=== PATIENT | male | born 1945 | race Caucasian/White ===

== ENCOUNTER 2019-12-24 18:52 | Emergency (ER) | payer MEDICARE, OTHER, SELFPAY ==
[2019-12-24 20:01] VITALS: BP 149/83; PULSE 62; RESP 14; TEMP 36.6; O2SAT 97; BMI 27.1
== END 2019-12-24 20:12 ==
LOC: ER 19:06
PROVIDERS: Emergency Provider Physician Assistant; PCP Family Medicine
DX: Z53.21 Procedure and treatment not carried out due to patient leaving prior to being seen by health care provider (principal)
CPT/HCPCS: 99281

== ENCOUNTER → 2020-04-22 10:11 | Outpatient (BNVA) | payer MEDICARE, OTHER, SELFPAY | PROVIDERS: PCP Family Medicine; Visit Provider Urology | DX: N52.9 Male erectile dysfunction, unspecified (principal); N32.0 Bladder-neck obstruction; R82.81 Pyuria; R97.20 Elevated prostate specific antigen [PSA] | CPT/HCPCS: 81003; 84153 ==

== ENCOUNTER → 2020-04-28 14:07 | Outpatient (BNVA) | payer MEDICARE, OTHER, SELFPAY | PROVIDERS: PCP Family Medicine; Visit Provider Dermatology | DX: D48.9 Neoplasm of uncertain behavior, unspecified (principal) | CPT/HCPCS: 88304 ==

== ENCOUNTER → 2021-04-22 10:54 | Outpatient (BNVA) | payer MEDICARE, OTHER, SELFPAY | PROVIDERS: PCP Family Medicine; Visit Provider Urology | DX: R97.20 Elevated prostate specific antigen [PSA] (principal); N30.00 Acute cystitis without hematuria; R82.71 Bacteriuria; N32.0 Bladder-neck obstruction; N52.9 Male erectile dysfunction, unspecified | CPT/HCPCS: 81003; 84153; 87077; 87086; 87184 ==

== ENCOUNTER → 2021-05-13 10:04 | Outpatient (BNVA) | payer MEDICARE, OTHER, SELFPAY | PROVIDERS: PCP Family Medicine; Visit Provider Nurse Practitioner Family | DX: R82.71 Bacteriuria (principal) | CPT/HCPCS: 81003 ==

== ENCOUNTER 2022-04-20 15:11 | Outpatient (CLI) | payer MEDICARE, OTHER, SELFPAY ==
[2022-04-20 16:19] LABS: Prostate Specific AG Urology 5.83 ng/mL (0-4)
== END 2022-04-20 15:12 | disposition home or self-care (01) ==
LOC: LAB 15:15
PROVIDERS: PCP Family Medicine; Visit Provider Urology
DX: R97.20 Elevated prostate specific antigen [PSA] (principal)
CPT/HCPCS: 84153

== ENCOUNTER → 2022-04-21 10:16 | Outpatient (BNVA) | payer MEDICARE, OTHER, SELFPAY | PROVIDERS: PCP Family Medicine; Visit Provider Urology | DX: N30.00 Acute cystitis without hematuria (principal); R97.20 Elevated prostate specific antigen [PSA]; N32.0 Bladder-neck obstruction; N52.9 Male erectile dysfunction, unspecified | CPT/HCPCS: 51798; 81003; 99213 ==

== ENCOUNTER → 2023-02-09 12:35 | Outpatient (BNVA) | payer MEDICARE, OTHER, SELFPAY | PROVIDERS: PCP Family Medicine; Referring Provider Dermatology; Visit Provider Student in an Organized Health Care Education/Training Program | DX: M70.61 Trochanteric bursitis, right hip | CPT/HCPCS: 73502; 99203 ==

== ENCOUNTER → 2023-05-08 09:50 | Outpatient (BNVA) | payer MEDICARE, OTHER, SELFPAY | PROVIDERS: PCP Family Medicine; Visit Provider Podiatrist Foot & Ankle Surgery | DX: M72.2 Plantar fascial fibromatosis | CPT/HCPCS: 73630; 99203 ==

== ENCOUNTER → 2023-05-29 10:42 | Outpatient (BNVA) | payer MEDICARE, OTHER, SELFPAY | PROVIDERS: PCP Family Medicine; Visit Provider Podiatrist Foot & Ankle Surgery | DX: M72.2 Plantar fascial fibromatosis | CPT/HCPCS: 99213 ==

== ENCOUNTER 2025-03-17 08:33 | Observation (INO) | payer MEDICARE, OTHER, SELFPAY ==
[2025-03-17] VITALS (9 sets, daily range): BP systolic 120–155; BP diastolic 71–85; PULSE 60–67; RESP 16–20; TEMP 36.4–36.6; O2SAT 93–100; BMI 27.8
--- OUTSIDE RECORDS SUMMARY | 2025-03-17 08:50 | XMS_ITS | Patient Health Record ---
Author Organization [employer] Urolog y, [facility] Address [address] [place] [address] Care Team Providers Care Dictating Machine Typist Name Role Phone Amie Rebolledo Primary Care Provider Autumn wynn MITUL WALLACE Unavailable [phone] Allergies No Known Allergies Results Component Value Reference Range Notes Urinalysis, Routine Reviewed date:08/12/2024 03:11:18 PM Interpretation: Performing Lab: Notes/Report: Urine-Color yellow Appearance clear Glucose - Bilirubin - Ketones - Specific [place] 1.025 Occult Blood - pH 6.0 Urine Protein - Urobilinogen,Semi-Qn - Nitrite, Urine - WBC Esterase - Reason For Referral No Information Medications Medication SIG (Take, Route, Frequency, Duration) Notes Start Date End Date Status Sulfamethoxazole - as directed Active Mylshxexzlova-Crdezz-Wxzfnjh e 0.1 & 5 % (Lotion) as directed Externally Active Sildenafil Citrate A ctive Social History Tobacco Use: Social History Observation Description Date Details (start date - stop date) Never Smoker NA - NA Tobacco Control (Standard) Question Answer Notes Tobacco use: Nonsmoker Problems Problem Type SNOMED Code ICD Code Onset Dates Problem Status W/U Status Risk Notes Problem Benign prostatic hyperplasia (451788886) BPH (benign prostatic hyperplasia) (N40.0) Active confirmed Problem Retention of urine (275637517) History of urinary retention (Z87.898) Active confirmed Problem History of transurethral resection of prostate (290152608) S/P TURP (Z90.79) Active confirmed Problem History of urethral stricture (378940233) H/O urethral stricture (Z87.448) Active confirmed Vital Signs Height-cm 182.88 cm 08/12/2024 Weight-kg 95.26 kg 08/12/2024 Height 72 in 08/12/2024 Weight 210 lbs 08/12/2024 BMI 28.48 kg/m2 08/12/2024 Procedures Procedure Date Ordered Date Performed Result Body Sit e Bladder Scan 08/12/2024 08/12/2024 PVR 281ml Encounters Encounter Location Date Provider Diagnosis [facility], [facility] [address] [place] [address] 08/12/2024 MITUL WALLACE BPH (benign prostatic hyperplasia) N40.0 ; S/P TURP Z90.79 ; H/O urethral stricture Z87.448 and History of urinary retention Z87.898 Assessments Encounter Date Diagnosis (ICD Code) Assessment Notes Treatment Notes Treatment Clinical Notes Section Notes 08/12/2024 BPH (benign prostatic hyperplasia) (ICD-10 - N40.0) 78 y/o M with BPH, Performs CIC once a month for urethral stricture dilation. He s/p TURP in 2011. PVR 281cc. Continue PSA with PCP. Stable from an urological at this time. He will return in 1yr with UA, PVR and IPSS. Return sooner with any concerns. Plan: - Continue CIC monthly for self dilation of urethral stricture -RTC in 1yr with UA, PVR, IPSS I, Jailene Escobar, am scribing for, and in the presence of, Dr. Wallace. I, Dr. Mitul Wallace, personally performed the services prescribed in this documentation, as scribed by Melisa Mcdonald, in my presence, and it is both accurate and complete. 08/12/2024 S/P TURP (ICD-10 - Z90.79) 78 y/o M with BPH, Performs CIC once a month for urethral stricture dilation. He s/p TURP in 2011. PVR 281cc. Continue PSA with PCP. Stable from an urological at this time. He will return in 1yr with UA, PVR and IPSS. Return sooner with any concerns. Plan: - Continue CIC monthly for self dilation of urethral stricture -RTC in 1yr with UA, PVR, IPSS I, Star Escobare, am scribing for, and in the presence of, Dr. Wallace. I, Dr. Mitul Wallace, personally performed the services prescribed in this documentation, as scribed by Melisa Mcdonald, in my presence, and it is both accurate and complete. 08/12/2024 H/O urethral stricture (ICD-10 - Z87.448) 78 y/o M with BPH, Performs CIC once a month for urethral stricture dilation. He s/p TURP in 2011. PVR 281cc. Continue PSA with PCP. Stable from an urological at this time. He will return in 1yr with UA, PVR and IPSS. Return sooner with any concerns. Plan: - Continue CIC monthly for self dilation of urethral stricture -RTC in 1yr with UA, PVR, IPSS Melisa Pacheco Scribe am scribing for, and in the presence of, Dr. Wallace. I, Dr. Mitul Wallace, personally performed the services prescribed in this documentation, as scribed by Melisa Mcdonald, in my presence, and it is both accurate and complete. 08/12/2024 History of urinary retention (ICD-10 - Z87.898) 78 y/o M with BPH, Performs CIC once a month for urethral stricture dilation. He s/p TURP in 2011. PVR 281cc. Continue PSA with PCP. Stable from an urological at this time. He will return in 1yr with UA, PVR and IPSS. Return sooner with any concerns. Plan: - Continue CIC monthly for self dilation of urethral stricture -RTC in 1yr with UA, PVR, IPSS Melisa Pacheco Scribe, am scribing for, and in the presence of, Dr. Wallace. I, Dr. Mitul Wallace, personally performed the services prescribed in this documentation, as scribed by Melisa Mcdonald, in my presence, and it is both accurate and complete. Plan Of Treatment Next Appt Details Provider Name:MITUL Martins, 08/18/2025 01:15:00 PM, [address] [place], [address], Insurance Providers Payer Name Payer Address Payer Phone Subscriber Number Group Number Insured Name Patient Relationship to Insured Coverage Start Date Coverage End Date [place] [address] [place] [id number] Placido Miller Self - patient is the insured [employer] [facility] [address] [place] [address] [phone] [id number] Placido Miller Self - patient is the insured Medical (General) History Medical History History ICD Code Difficulty urinating Elevated PSA Erectile dysfunction Recurrent UTI Surgical History Surgery Date(Month/Year) Prostate surgery 2013 Double hernia repair 2016 Hospitalization History Reason Date(Month/Year) GI bleed 2014
[2025-03-17 09:04] LABS: Hematocrit 40.2 % (37-53); Hemoglobin 13.80 g/dL (11.27-16.99); Mean Corpuscular HGB Conc 34.3 g/dL (30-55); Mean Corpuscular Hemoglobin 29.9 pg (27-33); Mean Corpuscular Volume 87.2 fl (82-101); Nucleated Red Blood Cells % 0 %; Platelet Count 227 10^3/cmm (157-399); Red Blood Count 4.61 10^6/uL (3.85-5.65); White Blood Count 6.28 10^3/uL (3.29-11.43)
[2025-03-17 09:14] LABS: INR 0.84 (0.8-1.2); Prothrombin Time 12.10 SECONDS (12.1-14.9)
[2025-03-17 09:15] LABS: Partial Thromboplastin Time 27.2 SECONDS (23.9-36.7)
[2025-03-17 09:23] LABS: Albumin Level 4.0 g/dL (3.5-5.2); Alkaline Phosphatase 67 U/L (40-130); Blood Urea Nitrogen 18 mg/dL (8-23); Calcium 8.6 mg/dL (8.5-10.5); Carbon Dioxide 24 mmol/L (22-29); Chloride 104 mmol/L (98-107); Creatinine Clr Calc Pharmacy 64.5078; Globulin 2.8 g/dL (1.3-4.6); Glucose 112 mg/dL (65-115); Lipase 74 U/L (13-60); Osmolality Calculated 287 mOsm/kg (285-295); Sodium 137 mmol/L (136-145); Total Protein 6.8 g/dL (6.6-8.7)
--- NOTE | 2025-03-17 09:26 | CT_ITS ---
WS: [id number] CT ABDOMEN PELVIS TECHNIQUE: Contrast-enhanced CT of the abdomen and pelvis with coronal and sagittal reformatted images. CLINICAL INFORMATION: abd pain COMPARISON: None. DLP: 585.[address] scans at [facility] use at least one of these dose optimization techniques: automated exposure control; mA and/or kV adjustment per patient size (includes targeted exams where dose is matched to clinical indication); or iterative reconstruction. FINDINGS: Diverticulosis. Loops of sigmoid colon in a large LEFT inguinal hernia although nonobstructed. Tiny amount of thickening and induration may be due to minimal or early diverticulitis. No fluid collections. Large nonobstructed RIGHT inguinal hernia containing loops of small bowel. Lung bases are well aerated. Slight bibasilar atelectasis. Fatty liver. Hepatic cysts. Normal portal vein and splenic vein. Normal gallbladder. Normal spleen. Adrenal glands are normal. Normal renal parenchymal enhancement. No hydronephrosis. Cortical scarring LEFT kidney. Small LEFT renal cyst. No hyd ronephrosis. Enlarged prostate measuring 4.9 cm. Celiac and SMA are patent. Normal caliber abdominal aorta. 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 This is similar to previous. CT/CT abdomen pelvis w con* [id number] IMPRESSION: 1. LEFT inguinal hernia containing loops of nonobstructed sigmoid colon. Widem outh hernia. There is very minimal trace induration in this area suspicious for diverticulitis. Recommend correlation for reducibility and intermittent obstru ction 2. Widemouth RIGHT inguinal hernia containing loops of nonobstructed small bow el. 3. Enlarged prostate measuring 4.9 cm with evidence of chronic bladder outlet obstruction. Recommend correlation PSA. 4. No other acute findings.
--- NOTE | 2025-03-17 09:29 | ED_ITS ---
HPI - GI Bleed 2 General: Chief complaint: GI Bleed Stated complaint: bloody stool Time Seen by Provider: 03/17/25 08:40 History of Present Illness: 79-year-old male presents to the emergen cy room with complaints of 2 large bright red bloody bowel movements in the last 12 hours. He had 1 yesterday and another this morning. He has had similar episodes in the past. Previously required transfer to [facility] when he had an active lower GI bleed of bright red blood they stabilized and gave him blood products and then eventually did a colonoscopy and discharged him home after approximately 2 to 3 days. The blood was thought to be coming from diverticuli. In discussing it does not sound like he was ever treated for diverticulitis necessarily. He denies any fever sweats chills no dysuria urgency or frequency no hematuria. Associated symptoms: Denies abdominal pain, chills, fever(s) or rash Related Data Home Medications ?Medication ?Instructions ?Recorded ?Confirmed No Known Home Medications 02/09/23 100 12/04 Allergies Allergy/AdvReac Type Severity Reaction Status Date / Time No Known Allergies Allergy Verified 05/29/23 10:52 Review of Systems 2 Const: Denies: fever(s) or chills Card: Denies: chest pain Resp: Denies: dyspnea GI: Denies: abdominal pain : Denies: dysuria, urinary frequency or urinary urgency Musc: Denies: neck pain or back pain Skin/Breast: Denies: rash PFSH ED 2 PFSH: Medical History PND (post-nasal drip) URI (upper respiratory infection) Erectile dysfunction BNO (bladder neck obstruction) History of recurrent UTIs Elevated PSA Surgical History Hx of colonoscopy with polypectomy Hx of transurethral resection of prostate Family History Mother , AT AGE 50 Cancer Father , AT AGE 83 Dementia HIP FRACTURE Social History Smoking and tobacco/nicotine status: former use of tobacco/nicotine Alcohol intake: current Alcohol intake frequency: holidays/special occasions only Substance/Drug Use: never Caregiver/support person: No Lives independently: No Household members: spouse Marital status: Current occupational status: employed Physical Exam 2 Const: GENERAL APPEARANCE: cooperative ORIENTATION/CONSCIOUSNESS: Yes awake, Yes oriented to person, Yes oriented to place and Yes oriented to time HENMT: COMMON NORMALS: normocephalic, atraumatic and hearing grossly normal bilaterally HEAD & SCALP: normocephalic and atraumatic Resp: COMMON NORMALS: normal respiratory effort, No retractions, No use of accessory muscles and clear to auscultation bilaterally AUSCULTATION: clear to auscultation bilaterally Cardio: COMMON NORMALS: regular rate, regular rhythm and No murmurs present (Cardio) RATE: regular rate RHYTHM: regular rhythm GI: COMMON NORMALS: Soft to palpation and No hepatosplenomegaly present A USCULTATION: Yes normoactive bowel sounds PALPATION: Yes Soft to palpation, No Tenderness to palpation present (GI), No Guarding due to palpation present (GI) and Yes No hepatosplenomegaly present Extremity: COMMON NORMALS: normal to inspection, capillary refill normal, no clubbing, cyanosis or edema, no calf tenderness and no pedal edema Neuro: SENSORIUM/ORIENTATION: Yes oriented to person, Yes oriented to place and Yes oriented to time Skin: COMMON NORMALS: no rashes or lesions noted GENERAL SKIN EXAM: no rashes or lesions noted Course 2 Vital Signs: Vital signs: Vital Signs Temperature 97.7 F 03/17/25 08:42 Pulse Rate 65 03/17/25 11:38 Respiratory Rate 16 03/17/25 08:42 Blood Pressure 134/80 03/17/25 11:38 Pulse Oximetry 97 03/17/25 11:38 Oxygen Delivery Me thod Room Air 03/17/25 08:42 MDM - GI Bleed Medical Decision Making While in department patient had another bloody bowel movement. His hemoglobin is 13 and his white count is normal CT shows left inguinal hernia without obstruction there is also question of some diverticulitis with mild induration. Discussed with Dr. Hines. He does not believe that hernia is at issue here based on the patient's presenting symptoms of 10 degree we did not try to manipulate it because of the inflammation there. He recommends observation and treatment with IV antibiotics cussed Dr. Eddy started Zosyn. Will need serial hemoglobins and monitoring Dr. Hines to consult. Orders written. Medical Records I reviewed the patient's medical records. Lab Data I reviewed the patient's lab results. 03/17/25 08:49 03/17/25 08:49 Radiology Impressions Abdomen/Pelvis CT 03/17/25 09:26 IMPRESSION: 1. LEFT inguinal hernia containing loops of nonobstructed sigmoid colon. Widemouth hernia. There is very minimal trace induration in this area suspicious for diverticulitis. Recommend correlation for reducibility and intermittent obstruction 2. Widemouth RIGHT inguinal hernia containing loops of nonobstructed small bowel. 3. Enlarged prostate measuring 4.9 cm with evidence of chronic bladder outlet obstruction. Recommend correlation PSA. 4. No other acute findings. Laboratory Results WBC 6.28 10^3/uL (3.29-11.43) 03/17/25 08:49 RBC 4.61 10^6/uL (3.85-5.65) 03/17/25 08:49 Hgb 13.80 g/dL (11.27-16.99) 03/17/25 08:49 Hct 40.2 % (37-53) 03/17/25 08:49 MCV 87.2 fl (82-101) 03/17/25 08:49 MCH 29.9 pg (27-33) 03/17/25 08:49 MCHC 34.3 g/dL (30-55) 03/17/25 08:49 RDW 11.9 % (12.1-15.1) L 03/17/25 08:49 Plt Count 227 10^3/cmm (157-399) 03/17/25 08:49 MPV 9.6 fL (7.4-10.4) 03/17/25 08:49 Neut % (Auto) 71.5 % 03/17/25 08:49 Lymph % (Auto) 16.6 % 03/17/25 08:49 Osborne % (Auto) 9.4 % 03/17/25 08:49 Eos % (Auto) 1.1 % 03/17/25 08:49 Baso % (Auto) 0.8 % 03/17/25 08:49 Neut # (Auto) 4.49 10^3/uL (1.8-7.7) 03/17/25 08:49 Lymph # (Auto) 1.0 10^3/uL (0.8-4.8) 03/17/25 08:49 Osborne # (Auto) 0.6 10^3/uL (0.2-0.9) 03/17/25 08:49 Eos # (Auto) 0.1 10^3/uL (0.0-0.8) 03/17/25 08:49 Baso # (Auto) 0.1 10^3/uL (0.0-0.1) 03/17/25 08:49 Nucleated RBC % (auto) 0 % 03/17/25 08:49 Nucleated RBCs # 0.0 /100WBC 03/17/25 08:49 PT 12.10 SECONDS (12.1-14.9) 03/17/25 08:49 INR 0.84 (0.8-1.2) 03/17/25 08:49 APTT 27.2 SECONDS (23.9-36.7) 03/17/25 08:49 Sodium 137 mmol/L (136-145) 03/17/25 08:49 Potassium 5.4 mmol/L (3.5-5.1) H 03/17/25 08:49 Chloride 104 mmol/L (98-107) 03/17/25 08:49 Carbon Dioxide 24 mmol/L (22-29) 03/17/25 08:49 Anion Gap 14.4 (5-19) 03/17/25 08:49 BUN 18 mg/dL (8-23) 03/17/25 08:49 Creatinine 1.1 mg/dL (0.7-1.2) 03/17/25 08:49 GFR Calculation Not Reportable 03/17/25 08:49 Glucose 112 mg/dL (65-115) 03/17/25 08:49 Calculated Osmolality 287 mOsm/kg (285-295) 03/17/25 08:49 Calcium 8.6 mg/dL (8.5-10.5) 03/17/25 08:49 Total Bilirubin 0.4 mg/dL (0.15-1.2) 03/17/25 08:49 AST 28 U/L (0-40) 03/17/25 08:49 ALT 18 U/L (0-41) 03/17/25 08:49 Alkaline Phosphatase 67 U/L (40-130) 03/17/25 08:49 Total Protein 6.8 g/dL (6.6-8.7) 03/17/25 08:49 Albumin 4.0 g/dL (3.5-5.2) 03/17/25 08:49 Globulin 2.8 g/dL (1.3-4.6) 03/17/25 08:49 Lipase 74 U/L (13-60) H 03/17/25 08:49 Urine Color Yellow (Yellow) 03/17/25 09:49 Urine Appearance Clear (CLEAR) 03/17/25 09:49 Urine pH 6.0 (5-7) 03/17/25 09:49 Ur Specific [place] 1.020 (1.005-1.030) 03/17/25 09:49 Urine Protein Negative (Negative) 03/17/25 09:49 Urine Glucose (UA) Negative (Normal) 03/17/25 09:49 Urine Ketones Negative (Negative) 03/17/25 09:49 Urine Blood Negative (Negative) 03/17/25 09:49 Urine Nitrate Negative (Negative) 03/17/25 09:49 Urine Bilirubin Negative (Negative) 03/17/25 09:49 Urine Urobilinogen 1.0 mg/dL (Negative) 03/17/25 09:49 Ur Leukocyte Esterase Negative (Negative) 03/17/25 09:49 Amorphous Sediment Not Reportable 03/17/25 09:49 All radiology interpretation(s) finalized by discharge Discharge Plan Discharge Patient Disposition: Placed in Observation Clinical Impression: Acute diverticulitis, Acute lower GI bleeding Coding Level of Care Code ED Balancing Machine Set Up Worker for Lori Morrell
[2025-03-17 09:31] LABS: Alanine Aminotransferase 18 U/L (0-41); Anion Gap 14.4 (5-19); Aspartate Amino Transferase 28 U/L (0-40); Potassium 5.4 mmol/L (3.5-5.1)
[2025-03-17] MEDS: iohexol 350 mg/mL 500 mL Btl (per mL) IV (09:51)
[2025-03-17 09:59] LABS: Add Urine Microscopic? NO
[2025-03-17 10:04] LABS: Glucose Urine UA Negative (Normal); Nitrate Urine Negative (Negative); Specific Gravity, Urine 1.020 (1.005-1.030)
[2025-03-17 10:08] LABS: Charge for UA Resulting for Rev
[2025-03-17] MEDS: piperacillin-tazobactam 3.375 GM in sodium chloride 0.9% (plus) 50 ML IV ×2 (10:46→17:53)
--- NOTE | 2025-03-17 11:18 | P.CONIM_ITS ---
Providers/Reason For Consult 2 Consulting Physician/Specialty*: Dr. Hines general surgery Reason for Consult*: Hematochezia, diverticulitis History of Present Illness History of Present Illness Placido Miller is a 79 year old male who presented with diverticulitis. Hematochezia. Hemodynamically appropriate. Medications/Allergies Home Medications ?Medication ?Instructions ?Recorded ?Confirmed ?Last Taken ?Type ciprofloxacin HCl 500 mg tablet 500 mg PO BID #10 tabs 03/18/25 Unknown Rx metronidazole 500 mg tablet 500 mg PO Q8H 5 days #15 t abs 03/18/25 Unknown Rx Allergies Allergy/AdvReac Type Severity Reaction Status Date / Time No Known Allergies Allergy Verified 05/29/23 10:52 PFSH Acute 2 PFSH: Medical History PND (post-nasal drip) URI (upper respiratory infection) Erectile dysfunction BNO (bladder neck obstruction) History of recurrent UTIs Elevated PSA Surgical History Hx of colonoscopy with polypectomy Hx of transurethral resection of prostate Family History Mother , AT AGE 50 Cancer Father , AT AGE 83 Dementia HIP FRACTURE Social History Smoking and tobacco/nicotine status: former use of tobacco/nicotine Alcohol intake: current Alcohol intake frequency: holidays/special occasions only Substance/Drug Use: never Caregiver/support person: No Lives independently: No Household members: spouse Marital status: Current occupational status: employed Vitals/I&O/Wt Last Vital Signs Temp 97.7 F 03/17/25 08:42 Pulse 60 03/17/25 10:53 Resp 16 03/17/25 08:42 BP 128/74 03/17/25 10:53 Pulse Ox 95 03/17/25 10:53 O2 Del Method Room Air 03/17/25 08:42 Weight last 48 hrs Weight 205 lb Physical Exam 2 Narrative: Chest: Unlabored breathing room air. No lymphadenopathy. Heart: Regular rate and rhythm. Abdomen: Soft, tender left lower quadrant. Inguinal hernias present. Reducible. Data 03/18/25 05:08 03/18/25 05:08 A&P Assessment and plan 1. Acute diverticulitis: Plan: 79-year-old male who was admitted with diverticulitis. Recommend medical management with antibiotics. Bowel rest. If hematochezia persists may need IR embolization. Discussed with hospitalist. PDMP PDMP Reviewed: Not Reviewed Coding Level of Care Code 30743 Diagnoses Acute diverticulitis K57.92
--- NOTE | 2025-03-17 11:18 | PM.MISC ---
Miscellaneous Note Note: Full consult note to follow. Diverticulitis with hematochezia. No concerns for left inguinal hernia strangulation. Treat diverticulitis with abx. Colonoscopy in 6 weeks. If hematochezia persists may need IR embolization
--- NOTE | 2025-03-17 14:29 | P.HP_ITS ---
Providers/Chief Complaint 2 Chief Complaint: bloody stool History of Present Illness Placido Miller is a 79 year old gentleman with a history of recurrent urinary tract infections presenting to the emergency department for bright red blood per rectum that began around midnight. Reports large-volume bleeding, filling the toilet at midnight and again around 6 a.m. Notes two additional bloody bowel movements since arriving to the emergency department. Prior gastrointestinal bleed approximately 9?10 years ago required transfusions and hospitalization in [place]; colonoscopy at that time revealed diverticulosis/diverticulitis and polyps. Denies current use of blood thinners, aspirin, or other medications and is not taking herbal supplements or fish oil. Previously took ibuprofen at the time of the prior GI bleed. 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 Expresses concern about hemoglobin dropping and the possibility of needing transfusions, referencing prior experience with multiple transfusions. Discussed diagnostic colonoscopy in the future for evaluation after inflammation subsides. Review of Systems 2 Const: Denies: fever(s), chills, body aches or malaise ENMT: Denies: throat pain Card: Denies: chest pain, edema, pre-syncope or dyspnea on exertion Resp: Denies: dyspnea, productive cough, change in phlegm color or hemoptysis GI: Denies: abdominal pain, nausea, vomiting, diarrhea, constipation, hematochezia or melena : Denies: flank pain, difficulty urinating, urinary frequency or hematuria Musc: Denies: back pain, joint swelling or joint redness Skin/Breast: Denies: rash or new lesions Neuro: Denies: headache(s) or confusion Medications/Allergies Home Medications ?Medication ?Instructions ?Recorded ?Confirmed ?Last Taken ?Type No Known Home Medications 02/09/2312/04 Unknown History Allergies Allergy/AdvReac Type Severity Reaction Status Date / Time No Known Allergies Allergy Verified 05/29/23 10:52 PFSH Acute 2 PFSH: Medical History PND (post-nasal drip) URI (upper respiratory infection) Erectile dysfunction BNO (bladder neck obstruction) History of recurrent UTIs Elevated PSA Surgical History Hx of colonoscopy with polypectomy Hx of transurethral resection of prostate Family History Mother , AT AGE 50 Cancer Father , AT AGE 83 Dementia HIP FRACTURE Social History Smoking and tobacco/nicotine status: former use of tobacco/nicotine Alcohol intake: current Alcohol intake frequency: holidays/special occasions only Substance/Drug Use: never Caregiver/support person: No Lives independently: No Household members: spouse Marital status: Current occupational status: employed Vitals/I&O/Wt Last Vital Signs Temp 97.7 F 03/17/25 08:42 Pulse 60 03/17/25 13:11 Resp 16 03/17/25 08:42 BP 125/79 03/17/25 13:11 Pulse Ox 99 03/17/25 13:11 O2 Del Method Room Air 03/17/25 08:42 Weight last 48 hrs Weight 92.986 kg Physical Exam 2 Const: COMMON NORMALS: patient oriented x3 and alert GENERAL APPEARANCE: c ooperative ORIENTATION/CONSCIOUSNESS: Yes awake HENMT: COMMON NORMALS: oropharynx normal Neck/C-Spine: COMMON NORMALS: no JVD Resp: COMMON NORMALS: normal respiratory effort and clear to auscultation bilaterally AUSCULTATION: clear to auscultation bilaterally Cardio: COMMON NORMALS: no JVD, regular rhythm, S1 normal heart sound present, S2 normal heart sound present and No murmurs present (Cardio) RHYTHM: regular rhythm HEART SOUNDS: S1 normal heart sound present and S2 normal heart sound present GI: COMMON NORMALS: Normal to inspection, nondistended, normoactive bowel sounds present, Soft to palpation and non-tender PALPATION: Yes Soft to palpation Extremity: COMMON NORMALS: no joint enlargement and no pedal edema Neuro: COMMON NORMALS: patient oriented x3 and moves all extremities S ENSORIUM/ORIENTATION: Yes alert Skin: COMMON NORMALS: no rashes or lesions noted GENERAL SKIN EXAM: no rashes or lesions noted Data 03/17/25 08:49 03/17/25 08:49 A&P Assessment and plan 1. Acute lower GI bleeding: Bright red blood per rectum : Active rectal bleeding with multiple episodes since midnight and two episodes in the emergency department; prior GI bleed history with past transfusions; discussed monitoring and potential interventions. Reviewed vitals, CBC, INR, CMP, UA, CT abdomen pelvis, ED provider note, discussed with ED provider. Reviewed surgery note. - Admit to inpatient unit (bed requested) for observation. - Monitor vitals and heart rate; reconnect monitoring as needed. - Recheck blood counts this afternoon, evening, overnight, and in the morning. - Type and crossmatch blood; have units prepared and ready just in case. 2 units on hold. - Maintain clear liquids for now to rest gastrointestinal tract. - Consider computed tomography (CT) with contrast if recurrent significant bleeding to localize the source. - Consider transfer for interventional radiology (IR) embolization if bleeding persists or does not improve. - If bleeding resolves and blood counts remain reasonable by tomorrow, consider cautious discharge. 2. Acute diverticulitis: Patient reports prior diagnosis of diverticulosis/diverticulitis; current imaging and clinical discussion suggest inflammation/infection with possible acute diverticulitis. - Treat diverticulitis with intravenous antibiotics now (received piperacillin- tazobactam [Zosyn] in the emergency department). - Transition to oral antibiotics prior to discharge. - Surgery consulted; plan to treat diverticulitis and reassess. - Plan follow-up with the surgeon in about six weeks after inflammation subsides to discuss rescheduling a diagnostic colonoscopy to evaluate for thickened areas and rule out malignancy. PDMP PDMP Reviewed: Not Reviewed Attestations 2 Medical Necessity Statement*: Place in observation for additional assessment management of lower GI bleed. and High MDM includes amount and/or complexity of data reviewed/ordered [ previous or external records, resulted lab(s)/test(s), ordered lab(s)/test(s) and other healthcare professional discussion] as documented Diagnoses Acute lower GI bleeding K92.2 Acute diverticulitis K57.92
[2025-03-17 15:52] LABS: Hemoglobin 12.70 g/dL (11.27-16.99)
[2025-03-17 19:32] LABS: Hemoglobin 12.40 g/dL (11.27-16.99)
[2025-03-17 22:26] LABS: C.Diff PCR (Lab) NEGATIVE (Negative)
[2025-03-17 23:37] LABS: Hemoglobin 10.90 g/dL (11.27-16.99)
[2025-03-18] VITALS: BP 148/72; PULSE 66; RESP 16; TEMP 36.5; O2SAT 95
[2025-03-18] MEDS: piperacillin-tazobactam 3.375 GM in sodium chloride 0.9% (plus) 50 ML IV ×2 (02:19→12:05)
[2025-03-18 04:00] VITALS: BP 144/62; PULSE 76; RESP 16; TEMP 37; O2SAT 95
[2025-03-18 05:17] LABS: Hematocrit 32.2 % (37-53); Hemoglobin 10.80 g/dL (11.27-16.99); Mean Corpuscular HGB Conc 33.5 g/dL (30-55); Mean Corpuscular Hemoglobin 29.4 pg (27-33); Mean Corpuscular Volume 87.7 fl (82-101); Nucleated Red Blood Cells % 0 %; Platelet Count 208 10^3/cmm (157-399); Red Blood Count 3.67 10^6/uL (3.85-5.65); White Blood Count 5.63 10^3/uL (3.29-11.43)
[2025-03-18 05:52] LABS: Anion Gap 13.7 (5-19); Blood Urea Nitrogen 16 mg/dL (8-23); Calcium 8.1 mg/dL (8.5-10.5); Carbon Dioxide 25 mmol/L (22-29); Chloride 106 mmol/L (98-107); Creatinine Clr Calc Pharmacy 64.5078; Glucose 129 mg/dL (65-115); Osmolality Calculated 293 mOsm/kg (285-295); Potassium 4.7 mmol/L (3.5-5.1); Sodium 140 mmol/L (136-145)
[2025-03-18 08:00] VITALS: BP 113/69; PULSE 70; RESP 19; TEMP 36.5; O2SAT 97
--- NOTE | 2025-03-18 09:54 | PC.CHAP ---
Pastoral Care Encounter/Spiritual Assessment Type of Contact [] Declined surgery center administrator visit [] Patient/Family/Request visit [] Outpatient visit [] Follow-up visit [] Physician referral [] Code/Alert [x] Routine visit [] Staff referral [] Actively dying [] Patient sleeping [] Family support [] [] Out of room [] Palliative care [] [] Receiving care in room [] Pre-surgical visit [] Trauma [] Long length of stay [] ICU visit [] Other: Relational/Emotional Strength [x] Patient feels connected with others/family/visitors/staff [] Distress [] Loneliness/isolation [] Abandonment Spirituality of Patient [x] Person of Bibiana [] Attends Gnosticism of their Bibiana [x] Believes in Prayer [] Reads Bible or Alevism materials [] There are Spiritual issues to be addressed Client Service Consultant Interventions [x] Prayer [x] Active listening [] Non-anxious presence [x] Spiritual/emotional support [] Crisis/trauma care [] Spiritual counseling [] Bereavement support [] Provided bereavement packet [] Provided Bible/devotional materials [] Provided toy/stuffed animal, coloring book to patient or family member [] Provided Communion [] Anointing/[place] [] Salvation [x] Completed spiritual assessment [] Other: Impact on Illness or Injury [] Angry [] Fearful [] Anxious [] Often cries [] Exhaustion [] Unable to work [] Unable to attend yarsani [] Unable to walk/stand [] Unable to read [] Unable to drive [] Unable to eat/drink [] Unable to sleep [] Unable to be with family [] Patient intubated [] Other: Summary Time spent with patient 5 min
--- NOTE | 2025-03-18 10:45 | P.DS_ITS ---
Discharge Providers Date of Admission: 03/17/25 14:52 Date of Discharge: March 18, 2025 Attending Provider at Admission: Shen Eddy Attending Provider at Discharge: Shen Eddy Diagnoses at Discharge Discharge Diagnosis 1. Acute lower GI bleedin. Acute diverticulitis: Reason for Visit Reason for Visit: bloody stool Brief History: Placido Miller is a 79 year old gentleman with a history of recurrent urinary tract infections presenting to the emergency department for bright red blood per rectum that began around midnight. Reports large-volume bleeding, filling the toilet at midnight and again around 6 a.m. Notes two additional bloody bowel movements since arriving to the emergency department. Prior gastrointestinal bleed approximately 9?10 years ago required transfusions and hospitalization in [place]; colonoscopy at that time revealed diverticulosis/diverticulitis and polyps. Denies current use of blood thinners, aspirin, or other medications and is not taking herbal supplements or fish oil. Previously took ibuprofen at the time of the prior GI bleed. 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 Expresses concern about hemoglobin dropping and the possibility of needing transfusions, referencing prior experience with multiple transfusions. Discussed diagnostic colonoscopy in the future for evaluation after inflammation subsides. Hospital Course Hospital Course His blood counts were monitored, he was treated with Zosyn in the hospital for acute diverticulitis. Rectal bleeding gradually subsided. Hemoglobin did decrease from 12.4-10.8. He had an additional small amount of rectal blood this morning delaying discharge, but subsequently without additional satish bleeding. Tolerating clear liquids. Ambulating. Without orthostatic symptoms or signs of hypovolemia or ongoing bleeding he is comfortable returning home and as per surgery recommendations, complete treatment for diverticulitis and follow-up in office for arrangements for follow-up colonoscopy. He is to advance diet gradually. As discussed to limit work to light activity, avoid heavy lifting until reassessment, avoid constipation, dehydration, gradually start adding fiber to diet. He is going to follow-up with primary provider-please reassess acute blood loss anemia, reassess after diverticulitis. Physical Exam Narrative: Pleasant and conversant, sitting upright on initial visit and revisits. Accompanied by his . In good spirits. Const: COMMON NORMALS: patient oriented x3 and alert GENERAL APPEARANCE: cooperative ORIENTATION/CONSCIOUSNESS: Yes awake HENMT: COMMON NORMALS: oropharynx normal Neck/C-Spine: COMMON NORMALS: no JVD Resp: COMMON NORMALS: normal respiratory effort and clear to auscultation bilaterally AUSCULTATION: clear to auscultation bilaterally Cardio: COMMON NORMALS: no JVD, regular rhythm, S1 normal heart sound present, S2 normal heart sound present and No murmurs present (Cardio) RHYTHM: regular rhythm HEART SOUNDS: S1 normal heart sound present and S2 normal heart sound present GI: COMMON NORMALS: Normal to inspection, nondistended, normoactive bowel sounds present, Soft to palpation and non-tender PALPATION: Yes Soft to palpation Extremity: COMMON NORMALS: no joint enlargement and no pedal edema Neuro: COMMON NORMALS: patient oriented x3 and moves all extremities SENSORIUM/ORIENTATION: Yes alert Skin: COMMON NORMALS: no rashes or lesions noted GENERAL SKIN EXAM: no rashes or lesions noted Discharge Data Studies Completed and Pending Completed Studies During Hospitalization Category Date Time Status CT abdomen pelvis w con* [id number] Stat Cat Scan 03/17/25 09:26 Completed Pending at discharge Category Date Time Status Basic Metabolic Panel AM LABS Lab 03/19/25 04:00 Ordered Basic Metabolic Panel AM LABS Lab 03/20/25 04:00 Ordered Complete Blood Count w/Auto AM LABS Lab 03/19/25 04:00 Ordered Complete Blood Count w/Auto AM LABS Lab 03/20/25 04:00 Ordered Leukocyte Reduced RBC Routine Lab 03/17/25 15:41 Results Stool Culture - Enteric [Salmonella / Shigella / Campy] Lab 03/17/25 21:24 Received Routine Type and Screen Routine Lab 03/17/25 15:41 Results Radiology Impressions Abdomen/Pelvis CT 03/17/25 09:26 IMPRESSION: 1. LEFT inguinal hernia containing loops of nonobstructed sigmoid colon. Widemouth hernia. There is very minimal trace induration in this area suspicious for diverticulitis. Recommend correlation for reducibility and intermittent obstruction 2. [place] RIGHT inguinal hernia containing loops of nonobstructed small bowel. 3. Enlarged prostate measuring 4.9 cm with evidence of chronic bladder outlet obstruction. Recommend correlation PSA. 4. No other acute findings. Laboratory Results WBC 5.63 10^3/uL (3.29-11.43) 03/18/25 05:08 RBC 3.67 10^6/uL (3.85-5.65) L 03/18/25 05:08 Hgb 10.80 g/dL (11.27-16.99) L 03/18/25 05:08 Hct 32.2 % (37-53) L 03/18/25 05:08 MCV 87.7 fl (82-101) 03/18/25 05:08 MCH 29.4 pg (27-33) 03/18/25 05:08 MCHC 33.5 g/dL (30-55) 03/18/25 05:08 RDW 11.9 % (12.1-15.1) L 03/18/25 05:08 Plt Count 208 10^3/cmm (157-399) 03/18/25 05:08 MPV 9.6 fL (7.4-10.4) 03/18/25 05:08 Neut % (Auto) 63.4 % 03/18/25 05:08 Lymph % (Auto) 24.7 % 03/18/25 05:08 [place] % (Auto) 8.9 % 03/18/25 05:08 Eos % (Auto) 1.6 % 03/18/25 05:08 Baso % (Auto) 0.7 % 03/18/25 05:08 Neut # (Auto) 3.57 10^3/uL (1.8-7.7) 03/18/25 05:08 Lymph # (Auto) 1.4 10^3/uL (0.8-4.8) 03/18/25 05:08 [place] # (Auto) 0.5 10^3/uL (0.2-0.9) 03/18/25 05:08 Eos # (Auto) 0.1 10^3/uL (0.0-0.8) 03/18/25 05:08 Baso # (Auto) 0.0 10^3/uL (0.0-0.1) 03/18/25 05:08 Nucleated RBC % (auto) 0 % 03/18/25 05:08 Nucleated RBCs # 0.0 /100WBC 03/18/25 05:08 PT 12.10 SECONDS (12.1-14.9) 03/17/25 08:49 INR 0.84 (0.8-1.2) 03/17/25 08:49 APTT 27.2 SECONDS (23.9-36.7) 03/17/25 08:49 Sodium 140 mmol/L (136-145) 03/18/25 05:08 Potassium 4.7 mmol/L (3.5-5.1) 03/18/25 05:08 Chloride 106 mmol/L (98-107) 03/18/25 05:08 Carbon Dioxide 25 mmol/L (22-29) 03/18/25 05:08 Anion Gap 13.7 (5-19) 03/18/25 05:08 BUN 16 mg/dL (8-23) 03/18/25 05:08 Creatinine 1.1 mg/dL (0.7-1.2) 03/18/25 05:08 GFR Calculation Not Reportable 03/18/25 05:08 Glucose 129 mg/dL (65-115) H 03/18/25 05:08 Calculated Osmolality 293 mOsm/kg (285-295) 03/18/25 05:08 Calcium 8.1 mg/dL (8.5-10.5) L 03/18/25 05:08 Total Bilirubin 0.4 mg/dL (0.15-1.2) 03/17/25 08:49 AST 28 U/L (0-40) 03/17/25 08:49 ALT 18 U/L (0-41) 03/17/25 08:49 Alkaline Phosphatase 67 U/L (40-130) 03/17/25 08:49 Total Protein 6.8 g/dL (6.6-8.7) 03/17/25 08:49 Albumin 4.0 g/dL (3.5-5.2) 03/17/25 08:49 Globulin 2.8 g/dL (1.3-4.6) 03/17/25 08:49 Lipase 74 U/L (13-60) H 03/17/25 08:49 Urine Color Yellow (Yellow) 03/17/25 09:49 Urine Appearance Clear (CLEAR) 03/17/25 09:49 Urine pH 6.0 (5-7) 03/17/25 09:49 Ur Specific [place] 1.020 (1.005-1.030) 03/17/25 09:49 Urine Protein Negative (Negative) 03/17/25 09:49 Urine Glucose (UA) Negative (Normal) 03/17/25 09:49 Urine Ketones Negative (Negative) 03/17/25 09:49 Urine Blood Negative (Negative) 03/17/25 09:49 Urine Nitrate Negative (Negative) 03/17/25 09:49 Urine Bilirubin Negative (Negative) 03/17/25 09:49 Urine Urobilinogen 1.0 mg/dL (Negative) 03/17/25 09:49 Ur Leukocyte Esterase Negative (Negative) 03/17/25 09:49 Amorphous Sediment Not Reportable 03/17/25 09:49 C. difficile (PCR) Negative (Negative) 03/17/25 21:24 Blood Type A Positive 03/17/25 15:41 Rho(D) Type Rh positive 03/17/25 15:41 Antibody Screen Negative 03/17/25 15:41 Crossmatch See Detail 03/17/25 15:41 Vitals Last Vital Signs Temp 97.7 F 03/18/25 08:00 Pulse 70 03/18/25 08:00 Resp 19 H 03/18/25 08:00 BP 113/69 03/18/25 08:00 Pulse Ox 97 03/18/25 08:00 O2 Del Method Room Air 03/18/25 08:00 Discharge Plan Discharge Patient Disposition: Home Condition: Stable Prescriptions: New metronidazole 500 mg tablet 500 mg PO Q8H 5 Days Qty: 15 0RF ciprofloxacin HCl 500 mg tablet 500 mg PO BID Qty: 10 0RF No Action No Known Home Medications Discharge Order = DC NOW: Discharge Conditional (Routine); Ordered 03/18/25 Ordered By: Shen Eddy Referrals: Preston Hines MD [Physician, General Surgery] - 04/10/25 8:20 am Amie Rebolledo NP [Referring, Unknown] - 03/24/25 12:30 pm Discharge Diet: Advance as tolerated and Clear Liquid Patient Instructions: Ciprofloxacin (By mouth), Metronidazole (By mouth), Diverticulitis (GEN), Rectal Bleeding (GEN), Patient Portal & [place] Instructions Activity Restrictions/Additional Instructions: Return to the hospital in case of any recurrence of bleeding, or feeling lightheaded or faint, heart racing, or any other concerns. Follow-up with surgery for arrangements for colonoscopy to be done at 6 weeks. Complete antibiotic course for diverticulitis. Follow-up with your primary doctor for reassessment of blood counts and reassessment after diverticulitis. Discharge Attestations Time Spent in Discharge Care*: greater than 30 min Quality Metrics Clinical Quality Measures [ No reported AMI, CVA or VTE this stay] Coding Level of Care Code 41036 Total time (in minutes) for Discharge: 40 Diagnoses Acute lower GI bleeding K92.2 Acute diverticulitis K57.92
--- OUTSIDE RECORDS SUMMARY | 2025-03-18 11:09 | XMS_ITS | Patient Health Record ---
Author Organization [facility], [facility] Address [address] [place] [address] Care Team Providers Care Junior Data Analyst Name Role Phone Amie Rebolledo Primary Care Provider Autumn wynn MITUL WALLACE Unavailable [phone] Allergies No Known Allergies Results Component Value Reference Range Notes Urinalysis, Routine Reviewed date:08/12/2024 03:11:18 PM Interpretation: Performing Lab: Notes/Report: Urine-Color yellow Appearance clear Glucose - Bilirubin - Ketones - Specific [place] 1.025 Occult Blood - pH 6.0 Urine Protein - Urobilinogen,Semi-Qn - Nitrite, Urine - WBC Esterase - Reason For Referral No Information Medications Medication SIG (Take, Route, Frequency, Duration) Notes Start Date End Date Status Sulfamethoxazole - as directed Active Vqqdlajzanfzm-Rfyhqu-Lqjnpfk e 0.1 & 5 % (Lotion) as directed Externally Active Sildenafil Citrate A ctive Social History Tobacco Use: Social History Observation Description Date Details (start date - stop date) Never Smoker NA - NA Tobacco Control (Standard) Question Answer Notes Tobacco use: Nonsmoker Problems Problem Type SNOMED Code ICD Code Onset Dates Problem Status W/U Status Risk Notes Problem Benign prostatic hyperplasia (902159739) BPH (benign prostatic hyperplasia) (N40.0) Active confirmed Problem Retention of urine (281419564) History of urinary retention (Z87.898) Active confirmed Problem History of transurethral resection of prostate (611250759) S/P TURP (Z90.79) Active confirmed Problem History of urethral stricture (243431183) H/O urethral stricture (Z87.448) Active confirmed Vital Signs Height-cm 182.88 cm 08/12/2024 Weight-kg 95.26 kg 08/12/2024 Height 72 in 08/12/2024 Weight 210 lbs 08/12/2024 BMI 28.48 kg/m2 08/12/2024 Procedures Procedure Date Ordered Date Performed Result Body Sit e Bladder Scan 08/12/2024 08/12/2024 PVR 281ml Encounters Encounter Location Date Provider Diagnosis [facility], [facility] [address] [place] [address] 08/12/2024 MITUL WALLACE BPH (benign prostatic hyperplasia) [...] Martins, 08/18/2025 01:15:00 PM, [address] [place], [address], Insurance Providers Payer Name Payer Address Payer Phone Subscriber Number Group Number Insured Name Patient Relationship to Insured Coverage Start Date Coverage End Date [place] [address] [place] [id number] Placido Miller Self - patient is the insured [place] [employer] [facility] [address] [place] [address] [phone] [id number] Placido Miller Self - patient is the insured Medical (General) History Medical History History ICD Code Difficulty urinating Elevated PSA Erectile dysfunction Recurrent UTI Surgical History Surgery Date(Month/Year) Prostate surgery 2013 Double hernia repair 2016 Hospitalization History Reason Date(Month/Year) GI bleed 2014
[2025-03-18 11:55] VITALS: BP 122/64; PULSE 65; RESP 18; TEMP 36.5; O2SAT 96
--- NOTE | 2025-03-18 12:48 | P.PN_ITS ---
Subjective 2 Subjective: No abdominal pain No hematochezia Tolerating p.o. Vitals/I&O/Wt Last Vital Signs Temp 97.7 F 03/18/25 11:55 Pulse 65 03/18/25 11:55 Resp 18 03/18/25 11:55 BP 122/64 03/18/25 11:55 Pulse Ox 96 03/18/25 11:55 O2 Del Method Room Air 03/18/25 11:55 03/17/25 03/18/25 03/18/25 22:59 06:59 14:59 Intake Total 460 / 460 50 / 510 240 / 240 Balance 460 / 460 50 / 510 240 / 240 Weight last 48 hrs Weight 205 lb Weight 205 lb Weight 205 lb Physical Exam 2 Narrative: Chest: Unlabored breathing room air. No lymphadenopathy. Heart: Regular rate and rhythm. Abdomen: Soft, nontender, nondistended. No masses or lymphadenopathy. Data 03/18/25 05:08 03/18/25 05:08 A&P Assessment and plan 1. Acute diverticulitis: Plan: 79-year-old male admitted with diverticulitis. Responded to antibiotics. Advance diet as tolerated. Colonoscopy in 6 weeks. Rest of care per hospitalist. PDMP PDMP Reviewed: Not Reviewed Attestations 2 Medical Necessity Statement*: N/A Coding Level of Care Code 50976 Diagnoses Acute diverticulitis K57.92
[2025-03-18 15:49] VITALS: BP 113/69; PULSE 72; RESP 19; TEMP 36.4; O2SAT 96
[2025-03-18 17:18] VITALS: BP 113/69; PULSE 72; RESP 19; TEMP 36.4; O2SAT 96
== END 2025-03-18 17:19 | disposition home or self-care (01) ==
LOC: ER 12:13 → MEDSURG 15:27
PROVIDERS: Admitting Provider Internal Medicine; Emergency Provider Family Medicine; Visit Provider Internal Medicine
DX: K57.92 Diverticulitis of intestine, part unspecified, without perforation or abscess without bleeding (principal); Z87.891 Personal history of nicotine dependence
CPT/HCPCS: 36415; 74177; 80048; 80053; 81003; 83690; 85018; 85025; 85610; 85730; 86850; 86900; 86920; 87045; 87427; 87449; 87493; 96365; 99285; G0378; J2543; J9999

== ENCOUNTER → 2025-04-08 10:36 | Outpatient (BNVA) | payer MEDICARE, OTHER, SELFPAY | PROVIDERS: Visit Provider Dermatology | DX: L82.1 Other seborrheic keratosis (principal); L57.8 Other skin changes due to chronic exposure to nonionizing radiation; L81.4 Other melanin hyperpigmentation; L57.0 Actinic keratosis | CPT/HCPCS: 17004; 99203 ==

== ENCOUNTER → 2025-04-10 08:04 | Outpatient (BNVA) | payer MEDICARE, OTHER, SELFPAY | PROVIDERS: Visit Provider Student in an Organized Health Care Education/Training Program | DX: K57.92 Diverticulitis of intestine, part unspecified, without perforation or abscess without bleeding (principal); R03.0 Elevated blood-pressure reading, without diagnosis of hypertension | CPT/HCPCS: 99204 ==

== ENCOUNTER 2025-05-06 06:31 | Day surgery (SDC) | payer MEDICARE, OTHER, SELFPAY ==
[2025-05-06 06:48] VITALS: BP 133/85; PULSE 73; RESP 17; TEMP 36.1; O2SAT 98; BMI 28.5
--- NOTE | 2025-05-06 07:27 | W.PM.OPSFHP ---
Same Day Surgery H&P Indication for Procedure/HPI DATE OF PROCEDURE: May 06, 2025 CHIEF COMPLAINT/INDICATIONFOR SURGICAL PROCEDURE: diverticulitis PREOP DIAGNOSIS: diverticulitis PLANNED PROCEDURE: Operation Date: 05/06/25 08:00 Proposed Procedures p Colonoscopy [id number] K57.92(Not Applicable) - Preston Hines MD Medications/Allergies* Home Medications ?Medication ?Instructions ?Recorded ?Confirmed ?Type No Known Home Medications 04/10/25 05/06/25 History Allergies/Adverse Reactions Allergy/AdvReac Type Severity Reaction Status Date / Time No Known Allergies Allergy Verified 05/06/25 06:47 Current Medications: Generic Name Dose Route Start Last Admin Trade Name Freq PRN Reason Stop Dose Admin Sodium Chloride 1,000 mls @ 15 mls/hr 05/06/25 06:43 05/06/25 07:03 Sodium Chloride 0.9% IV 05/07/25 06:42 15 mls/hr .Q24H PRN Administration COLONOSCOPY FLUIDS Pertinent History/Comorbid Conditions* Medical History (Updated 03/17/25 @ 12:13 by Puma Nj DO) PND (post-nasal drip) URI (upper respiratory infection) Erectile dysfunction BNO (bladder neck obstruction) History of recurrent UTIs Elevated PSA Surgical History (Updated 04/22/20 @ 14:04 by Iglesia Chaves MD) Hx of colonoscopy with polypectomy Hx of transurethral resection of prostate Family History (Updated 04/21/20 @ 10:56 by FLORENCE Schulz) Father, AT AGE 83 Mother, AT AGE 50 Dementia Father HIP FRACTURE Cancer Mother Social History Smoking and tobacco/nicotine status: never used tobacco/nicotine Alcohol intake: current Alcohol intake frequency: holidays/special occasions only Substance/Drug Use: never Caregiver/support person: No Lives independently: No Household members: spouse Marital status: Current occupational status: employed Pertinent Exam Findings alert, oriented x 3, clear to auscultation bilaterally, regular rate & rhythm and procedure specific exam findings abdomen soft, nt, nd Recommendations Risks and benefits of procedure reviewed and Patient/family agree to proceed Surgery/Procedure today Other Plans: I have explained the risks and benefits of a diagnostic colonoscopy and the patient agrees to proceed. Patient understands that hemoccult is not an alternative in this case and decides to proceed with colonoscopy. Had an extensive discussion with the patient. Answered all questions. Patient understands that the risks include a 1% risk of iatrogenic perforation and risk of aspiration. Coding Level of Care Code Acute Code for Chg Fwd
--- NOTE | 2025-05-06 07:32 | ANES.PREANE2 ---
Pre-Anesthetic Assessment Height/Weight: Height 1.83 m Weight 95.254 kg Temp Pulse Resp BP Pulse Ox O2 Del Method 97.0 F L 73 17 133/85 98 Room Air 05/06/25 06:48 05/06/25 06:48 05/06/25 06:48 05/06/25 06:48 05/06/25 06:48 05/06/25 06:48 Preop Diagnosis: diverticulitis Operation Date: 05/06/25 08:00 Proposed Procedures p Colonoscopy [id number] K57.92(Not Applicable) - Preston Hines MD Was Beta Katiuska taken within 24 hours: N/A Was Clonidine taken within 24 hours: N/A Last intake: Intake Last Liquid Date 05/05/25 Last Liquid Time 20:00 Last Solid Date 05/04/25 Last Solid Time 18:00 Last Intake: 18:00 Social No alcohol and No tobacco Exam alert, oriented x 3, clear to auscultation bilaterally and regular rate & rhythm Airway Submandibular: within normal limits Cervical ROM: within normal limits Mallampati: Class III Dentition: partials History/ROS No significant history except as noted and No significant complaints Pulmonary None reported CV/HEM None reported None reported Hepatic None reported GI diverticulitis Metabolic None reported Musc/skel None reported Neuropsych None reported Anesthetic Plan ASA status: 2 Anesthesia: Anesthesia Evaluation and MAC Risk of > 500 ml blood loss (7ml/kg in children): No Medications/Allergies Home Medications ?Medication ?Instructions ?Recorded ?Confirmed ?Last Taken ?Type No Known Home Medications 04/10/25 05/06/25 Unknown History Allergies Allergy/AdvReac Type Severity Reaction Status Date / Time No Known Allergies Allergy Verified 05/06/25 06:47 Current Medications Generic Name Dose Route Start Last Admin Trade Name Freq PRN Reason Stop Dose Admin Sodium Chloride 1,000 mls @ 15 mls/hr 05/06/25 06:43 05/06/25 07:03 Sodium Chloride 0.9% IV 05/07/25 06:42 15 mls/hr .Q24H PRN Administration COLONOSCOPY FLUIDS PFSH Anesthesia Medical History PND (post-nasal drip) URI (upper respiratory infection) Erectile dysfunction BNO (bladder neck obstruction) History of recurrent UTIs Elevated PSA Surgical History Hx of colonoscopy with polypectomy Hx of transurethral resection of prostate Family History Mother , AT AGE 50 Cancer Father , AT AGE 83 Dementia HIP FRACTURE Social History Smoking and tobacco/nicotine status: never used tobacco/nicotine Alcohol intake: current Alcohol intake frequency: holidays/special occasions only Substance/Drug Use: never Caregiver/support person: No Lives independently: No Household members: spouse Marital status: Current occupational status: employed
[2025-05-06 08:11] VITALS: BP 115/71; PULSE 59; RESP 16; TEMP 36.1; O2SAT 95
--- NOTE | 2025-05-06 08:21 | PC.NURSE ---
Cecum time documented in the chart is not accurate, but was filled in to complete the required centeno. The cecum was not reached due to poor bowel prep.
[2025-05-06 08:25] VITALS: BP 125/75; PULSE 56; RESP 18; O2SAT 98
--- NOTE | 2025-05-06 09:00 | ANE.PACU2 ---
Inpatient post-anesthesia follow up: Airway intact: Yes Vital signs: Temperature 97 F Pulse Rate 56 Respiratory Rate 18 Blood Pressure 125/75 Pulse Oximetry 98 Oxygen Delivery Me thod Room Air Oxygen Flow Rate Fraction of Inspir ed Oxygen Hydration adequate: Yes Nausea and vomiting: No Pain level: 1 Mental status: Baseline
== END 2025-05-06 09:00 | disposition home or self-care (01) ==
PROVIDERS: PCP Nurse Practitioner Family; Visit Provider Student in an Organized Health Care Education/Training Program
PROC: 0DJD8ZZ Inspection of Lower Intestinal Tract, Via Natural or Artificial Opening Endoscopic (ICD-10-PCS; CPT 45378; principal; 2025-05-06 08:00)
DX: K57.92 Diverticulitis of intestine, part unspecified, without perforation or abscess without bleeding (principal); K57.30 Diverticulosis of large intestine without perforation or abscess without bleeding; D12.5 Benign neoplasm of sigmoid colon; D12.8 Benign neoplasm of rectum
CPT/HCPCS: 45385; 88305; J2704; J7030

== ENCOUNTER → 2025-05-19 10:23 | Outpatient (BNVA) | payer MEDICARE, OTHER, SELFPAY | PROVIDERS: PCP Nurse Practitioner Family; Visit Provider Student in an Organized Health Care Education/Training Program | DX: Z51.89 Encounter for other specified aftercare (principal); R03.0 Elevated blood-pressure reading, without diagnosis of hypertension | CPT/HCPCS: 99213 ==